=== PATIENT | female | born 1945 | race Caucasian/White ===

== ENCOUNTER 2016-07-09 07:05 | Day surgery (SDC) | payer OTHER ==
[~2016-07-09] VITALS: Ht 154.9 cm; Wt 72.6 kg
[2016-07-09] MEDS ORDERED: fentaNYL 0.05 MG/ML VIAL ONE (08:32)
[2016-07-09] MEDS ORDERED: LIDOCAINE 2% 100 MG/5 ML UJET TP ONE (08:33)
[2016-07-09] MEDS ORDERED: MIDAZOLAM 2 MG/2 ML VIAL ONE (08:33)
== END 2016-07-09 10:00 | disposition home or self-care (01) ==
LOC: MMU 07:05 → MDS 07:05
PROVIDERS: ATTEND Internal Medicine Gastroenterology
DX: Z12.11 Encounter for screening for malignant neoplasm of colon (principal); D12.3 Benign neoplasm of transverse colon; K57.30 Diverticulosis of large intestine without perforation or abscess without bleeding; K64.8 Other hemorrhoids; F32.9 Major depressive disorder, single episode, unspecified
CPT/HCPCS: J2250; J3010